=== PATIENT | female | born 1995 | race Caucasian/White ===

== ENCOUNTER → 2016-06-25 | Outpatient (CLI) | payer OTHER ==
[2015-11-14 15:10] VITALS: BP 106/68
[~2016-06-25] MED LIST: FERR325T58 PO; PNV1TABL25 PO
--- NOTE | 2016-06-25 08:32 | RAD ---
Indication:Abdominal pain Grayscale images of the abdomen were obtained. Comparison none Liver:No focal mass is seen in the visualized liver Gallbladder:Normal. The common bile duct diameter of 4 to 5 mm is normal Spleen:Slightly enlarged but otherwise normal Pancreas:As visualized normal. Some of the tail was obscured. Kidneys:Normal Abdominal aorta and IVC:Normal Ancillary findings:None Impression:No acute or significant finding. Spleen slightly enlarged
== END | disposition home or self-care (01) ==
LOC: US 07:35
PROVIDERS: ATTEND Family Medicine
DX: R10.84 Generalized abdominal pain (principal)
CPT/HCPCS: 76700

== ENCOUNTER 2016-07-31 22:58 | Emergency (ER) | payer OTHER ==
[~2016-07-31] VITALS: Ht 160 cm; Wt 86.2 kg
[2016-07-31 23:20] VITALS: BP 117/59
[2016-07-31 23:31] LABS: BILIRUBIN,URINE NEGATIVE (NEG); GLUCOSE,URINE NEGATIVE (NEG); NITRITE,URINE NEGATIVE (NEG); PROTEIN,URINE NEGATIVE (NEG-TRACE); UROBILINOGEN,URINE 0.2 mg/dL (0.2 mg/dL)
--- NOTE | 2016-07-31 23:37 | PHYS DOC ---
Past Medical History Past Medical History: Bipolar, Depression Past Surgical History: No Surgical History Alcohol Use: None Drug Use: None Adult General Chief Complaint Chief Complaint: RIB PAIN HPI HPI Patient is a 21 year old female with history of bipolar and depression who presents today with 7 out of 10 left upper quadrant/ left anterior rib pain that began 2 days ago. Patient denies any trauma. She states the pain is worse when she takes a deep breath. Patient denies any urgency frequency dysuria. Denies any hematuria. Denies any chance she is . She states she is on control and takes it daily. Denies any history of alcohol abuse. Review of Systems Review of Systems Constitutional: Denies fever or chills [] Eyes: Denies change in visual acuity, redness, or eye pain [] HENT: Denies nasal congestion or sore throat [] Respiratory: Left lateral anterior lower rib pain Cardiovascular: No additional information not addressed in HPI [] GI: Left upper quadrant pain : Denies dysuria or hematuria [] Musculoskeletal: Denies back pain or joint pain [] Integument: Denies rash or skin lesions [] Neurologic: Denies headache, focal weakness or sensory changes [] Endocrine: Denies polyuria or polydipsia [] Allergies Allergies Allergies Coded Allergies Type Severity Reaction Last Updated Verified No Known Drug Allergies 11/10/15 No Physical Exam Physical Exam Constitutional: Well developed, well nourished, no acute distress, non-toxic appearance. [] HENT: Normocephalic, atraumatic, bilateral external ears normal, oropharynx moist, no oral exudates, nose normal. [] Eyes: PERRLA, EOMI, conjunctiva normal, no discharge. [] Neck: Normal range of motion, no tenderness, supple, no stridor. [] Cardiovascular:Heart rate regular rhythm, no murmur [] Lungs & Thorax: Bilateral breath sounds clear to auscultation, reproducible tenderness on palpation of the left lower ribs approx. ribs 7-9 mid clavicular line. Abdomen: Bowel sounds normal, soft, no tenderness, no masses, no pulsatile masses. [] Skin: Warm, dry, no erythema, no rash. [] Back: No tenderness, no CVA tenderness. [] Extremities: No tenderness, no cyanosis, no clubbing, ROM intact, no edema. [] Neurologic: Alert and oriented X 3, normal motor function, normal sensory function, no focal deficits noted. [] Psychologic: Affect normal, judgement normal, mood normal. [] Current Patient Data Vital Signs Vital Signs Date Time Temp Pulse Resp B/P (MAP) Pulse Ox O2 Delivery O2 Flow Rate FiO2 07/31/16 23:20 98.9 92 18 99 Room Air 98.9 Lab Values Laboratory Tests Test 07/31/16 22:36 07/31/16 23:26 POC Urine HCG, Qualitative Hcg negative (Negative) Urine Collection Type Unknown Urine Color Yellow Urine Clarity Cloudy Urine pH 7.0 Urine Specific [place] 1.010 Urine Protein Negative mg/dL (NEG-TRACE) Urine Glucose (UA) Negative mg/dL (NEG) Urine Ketones (Stick) Negative mg/dL (NEG) Urine Blood Negative (NEG) Urine Nitrite Negative (NEG) Urine Bilirubin Negative (NEG) Urine Urobilinogen Dipstick 0.2 mg/dL (0.2 mg/dL) Urine Leukocyte Esterase Trace (NEG) Urine RBC 0 /HPF (0-2) Urine WBC 1-4 /HPF (0-4) Urine Squamous Epithelial Cells Many /LPF Urine Bacteria Few /HPF (0-FEW) EKG EKG [] Radiology/Procedures Radiology/Procedures [] Course & Med Decision Making Course & Med Decision Making Pertinent Labs and Imaging studies reviewed. (See chart for details) This is a 21 year old female who presents with left upper quadrant/ left anterior rib pain that began 2 days ago. Patient's pain is musculoskeletal. Chest x-ray interpreted by Dr. Villalobos is negative for any acute findings. Urine analysis is negative for infection and blood. patient be discharged with naproxen and Flexeril. Recommended ice or heat to the affected area. Follow-up with her own PCP in 1-2 weeks. Dragon Disclaimer Dragon Disclaimer This electronic medical record was generated, in whole or in part, using a voice recognition dictation system. Departure Departure Impression: Primary Impression: Rib pain on left side Disposition: 01 HOME, SELF-CARE Condition: STABLE Referrals: VITALY SANDHU MD (PCP) Follow-up with your own doctor in 1-2 weeks Patient Instructions: Musculoskeletal Pain Additional Instructions: You were seen for left rib pain. The pain appears to be musculoskeletal. Take the prescribed medicines as needed. You can apply heat or ice to the area. Follow-up with your own doctor in 1-2 weeks. Continue taking deep breaths despite the pain to prevent pneumonia. Scripts Naproxen (NAPROXEN) 500 Mg Tablet. 1 TAB PO BID, #60 TAB 1 Refill Prov: MARÍA SWANSON APRN 07/31/16 Cyclobenzaprine Hcl (CYCLOBENZAPRINE HCL) 10 Mg Tablet 1 TAB PO TID, #30 TAB Prov: MARÍA SWANSON APRN 07/31/16 MARÍA SWANSON APRN Jul 31, 2016 23:37
[2016-07-31 23:45] LABS: BACTERIA,URINE FEW /HPF (0-FEW); RBC,URINE 0 /HPF (0-2); SQUAMOUS EPITHELIAL CELL,UR MANY /LPF
[2016-07-31] MEDS ORDERED: NAPR500T8 PO (23:56)
[2016-07-31] MEDS ORDERED: CYCL10TA2 PO (23:56)
--- NOTE | 2016-08-01 07:45 | RAD ---
Indication right-sided chest pain. PA and lateral views of the chest were obtained. No prior imaging of the chest is available. The heart and pulmonary vessels appear normal. The lungs are clear. There is no pleural fluid or pneumothorax. Bony structures appear grossly intact. IMPRESSION: Normal study
== END 2016-08-01 00:01 | disposition home or self-care (01) ==
LOC: ER 22:58
DX: R07.81 Pleurodynia (principal); F31.9 Bipolar disorder, unspecified
CPT/HCPCS: 71020; 81001; 81025; 99285-25

== ENCOUNTER 2017-02-22 17:42 | Emergency (ER) | payer OTHER ==
[2017-02-22] MEDS: TETRACAINE 0.5% OPHTH SOLUTION 4ML BOTTLE. OU (18:48)
[2017-02-22] MEDS: FLUORESCEIN OPHTH TEST STRIP. OU (18:48)
== END 2017-02-22 19:22 | disposition home or self-care (01) ==
LOC: ER 17:42
DX: H10.89 Other conjunctivitis (principal); B96.89 Other specified bacterial agents as the cause of diseases classified elsewhere; F31.9 Bipolar disorder, unspecified
CPT/HCPCS: 99283

== ENCOUNTER 2017-02-25 21:58 | Emergency (ER) | payer OTHER ==
[2017-02-26 08:35] LABS: NEGATIVE OBC STREP NEG
[2017-02-26 08:36] LABS: POSITIVE OBC STREP POS
== END 2017-02-25 23:06 | disposition home or self-care (01) ==
LOC: ER 21:58
DX: J02.0 Streptococcal pharyngitis (principal); F31.9 Bipolar disorder, unspecified
CPT/HCPCS: 87880; 99283

== ENCOUNTER 2017-06-01 21:49 | Emergency (ER) | payer OTHER ==
[2017-06-01 22:10] LABS: URINE HCG POC HCG POSITIVE (Negative)
[2017-06-01 22:18] LABS: BILIRUBIN,URINE NEGATIVE (NEG); COLOR,URINE YELLOW; GLUCOSE,URINE NEGATIVE (NEG); NITRITE,URINE NEGATIVE (NEG); PH,URINE 6.5; PROTEIN,URINE NEGATIVE (NEG-TRACE)
[2017-06-01 22:32] LABS: CLARITY,URINE HAZY
[2017-06-01 22:37] LABS: BACTERIA,URINE MODERATE /HPF (0-FEW); RBC,URINE 0 /HPF (0-2); SQUAMOUS EPITHELIAL CELL,UR MANY /LPF
[2017-06-01 22:52] LABS: ADD MAN DIFF? NO
[2017-06-01 22:54] LABS: BASO # 0.1 x10^3/uL (0.0-0.2); BASO % 1 % (0-3); EOS # 0.1 x10^3/uL (0.0-0.7); EOS % 1 % (0-3); HEMATOCRIT 36.2 % (36.0-47.0); HEMOGLOBIN 12.2 g/dL (12.0-15.5); LYMPH # 2.7 x10^3/uL (1.0-4.8); LYMPH % 27 % (24-48); MEAN CORPUSCULAR HEMOGLOBIN 29 pg (25-35); MEAN CORPUSCULAR HGB CONC 34 g/dL (31-37); MEAN CORPUSCULAR VOLUME 85 fL (79-100); MONO # 0.5 x10^3/uL (0.0-1.1); MONO % 5 % (0-9); NEUT # 6.7 x10^3uL (1.8-7.7); NEUT % 67 % (31-73); PLATELET COUNT 254 x10^3/uL (140-400); RED BLOOD COUNT 4.27 x10^6/uL (3.50-5.40); RED CELL DISTRIBUTION WIDTH 13.7 % (11.5-14.5); WHITE BLOOD COUNT 10.1 x10^3/uL (4.0-11.0)
[2017-06-01 23:16] LABS: ANION GAP 11 (6-14); BLOOD UREA NITROGEN 13 mg/dL (7-20); CALCIUM 8.7 mg/dL (8.5-10.1); CARBON DIOXIDE 25 mmol/L (21-32); CHLORIDE 104 mmol/L (98-107); CREATININE 0.6 mg/dL (0.6-1.0); GFR 127.5; GLUCOSE 95 mg/dL (70-99); POTASSIUM 3.8 mmol/L (3.5-5.1); SODIUM 140 mmol/L (136-145)
[2017-06-01 23:21] LABS: ALBUMIN 3.6 g/dL (3.4-5.0); ALK PHOS 85 U/L (46-116); ALT (SGPT) 32 U/L (14-59); AST (SGOT) 22 U/L (15-37); DIRECT BILIRUBIN < 0.2 mg/dL (0.0-0.2); LIPASE 104 U/L (73-393); TOTAL BILIRUBIN 0.5 mg/dL (0.2-1.0); TOTAL PROTEIN 7.9 g/dL (6.4-8.2)
== END 2017-06-01 23:50 | disposition home or self-care (01) ==
LOC: ER 21:49
DX: O26.891 Other specified pregnancy related conditions, first trimester (principal); R10.2 Pelvic and perineal pain; R82.71 Bacteriuria; O20.9 Hemorrhage in early pregnancy, unspecified; O99.341 Other mental disorders complicating pregnancy, first trimester; F31.9 Bipolar disorder, unspecified; Z3A.01 Less than 8 weeks gestation of pregnancy
CPT/HCPCS: 36415; 76801; 80048; 80076; 81001; 81025; 83690; 84702; 85025; 87086; 99285-25

== ENCOUNTER → 2017-07-01 | Outpatient (CLI) | payer OTHER ==
[2017-07-01 15:34] LABS: ADD MAN DIFF? NO
[2017-07-01 15:47] LABS: BASO # 0.1 x10^3/uL (0.0-0.2); BASO % 1 % (0-3); EOS # 0.1 x10^3/uL (0.0-0.7); EOS % 1 % (0-3); HEMATOCRIT 34.6 % (36.0-47.0); LYMPH # 1.8 x10^3/uL (1.0-4.8); LYMPH % 22 % (24-48); MEAN CORPUSCULAR HEMOGLOBIN 30 pg (25-35); MEAN CORPUSCULAR HGB CONC 35 g/dL (31-37); MEAN CORPUSCULAR VOLUME 86 fL (79-100); MONO # 0.4 x10^3/uL (0.0-1.1); MONO % 5 % (0-9); NEUT # 5.7 x10^3uL (1.8-7.7); NEUT % 71 % (31-73); PLATELET COUNT 249 x10^3/uL (140-400); RED BLOOD COUNT 4.03 x10^6/uL (3.50-5.40); RED CELL DISTRIBUTION WIDTH 13.7 % (11.5-14.5)
[2017-07-01 16:52] LABS: BILIRUBIN,URINE NEGATIVE (NEG); CLARITY,URINE CLEAR; COLOR,URINE YELLOW; GLUCOSE,URINE NEGATIVE (NEG); NITRITE,URINE NEGATIVE (NEG); PROTEIN,URINE NEGATIVE (NEG-TRACE)
[2017-07-01 17:21] LABS: BACTERIA,URINE FEW /HPF (0-FEW); RBC,URINE 0 /HPF (0-2); SQUAMOUS EPITHELIAL CELL,UR MOD /LPF
[2017-07-02 06:16] LABS: RPR Non Reactive (Non Reactive)
[2017-07-02 07:36] LABS: HEP B SURFACE AG Negative (Negative); HIV ANTIBODY Non Reactive (Non Reactive)
[2017-07-03 19:18] LABS: RUBELLA IGG ANTIBODY <0.90 index (Immune >0.99)
== END | disposition home or self-care (01) ==
LOC: LAB 15:20
DX: Z34.91 Encounter for supervision of normal pregnancy, unspecified, first trimester (principal); Z3A.11 11 weeks gestation of pregnancy
CPT/HCPCS: 36415; 81001; 85025; 86593; 86703; 86762; 86850; 86900; 86901; 87086; 87340

== ENCOUNTER → 2017-07-08 | Outpatient (CLI) | payer OTHER | END | disposition home or self-care (01) | LOC: US 10:41 | DX: Z34.81 Encounter for supervision of other normal pregnancy, first trimester (principal); Z3A.12 12 weeks gestation of pregnancy | CPT/HCPCS: 76815 ==

== ENCOUNTER → 2017-10-07 | Outpatient (CLI) | payer OTHER ==
[2017-06-01 22:18] VITALS: BP 128/76
[~2017-10-07] MED LIST changes: +AMOX875T PO; +CEPH-263 PO; +CYCL10TA2 PO; +NAPR500T8 PO; +TOBR5DRO6 EACHEYE
--- NOTE | 2017-10-07 16:54 | RAD ---
Obstetrical ultrasound HISTORY: Large for dates. COMPARISON: July 08, 2017 FINDINGS: Cervical length measures 4.2 cm. movement is documented. Amniotic fluid volume is within normal limits. ALEXA measures 13.4 cm. heart tones are documented with a heart rate of 143 bpm. Fetus is in a breech presentation. Placenta is posterior and fundal. Head circumference, biparietal diameter, femur length and abdominal circumference are measured. Estimated sonographic age is 26 weeks 1 day with an estimated due date of January 12, 2018. Estimated weight is 2 lbs. 0 oz. +/- 5 ounces. IMPRESSION: Single viable fetus identified in breech presentation. Estimated sonographic age is 26 weeks 1 day. Note that the estimated clinical age is 25 weeks 1 day. Electronically signed by: Héctor Hamilton MD (10/07/2017 4:50 PM) [id number]
== END | disposition home or self-care (01) ==
LOC: US 14:07
PROVIDERS: ATTEND Family Medicine
DX: O36.62X0 Maternal care for excessive fetal growth, second trimester, not applicable or unspecified (principal); Z3A.25 25 weeks gestation of pregnancy
CPT/HCPCS: 76805

== ENCOUNTER 2017-10-26 22:14 | Observation (INO) | payer OTHER ==
[2017-06-01 22:18] VITALS: BP 128/76
[2017-10-26] MEDS ORDERED: IV RINGERS,LACTATED 1000ML 1,000 ML IV PRN (22:30)
[2017-10-26 23:11] LABS: BILIRUBIN,URINE NEGATIVE (NEG); CLARITY,URINE CLEAR; COLOR,URINE YELLOW; NITRITE,URINE NEGATIVE (NEG); PROTEIN,URINE NEGATIVE (NEG-TRACE); UROBILINOGEN,URINE 0.2 mg/dL (0.2 mg/dL)
[2017-10-26 23:12] LABS: BACTERIA,URINE 0 /HPF (0-FEW); RBC,URINE 0 /HPF (0-2); SQUAMOUS EPITHELIAL CELL,UR FEW /LPF; WBC,URINE 0 /HPF (0-4)
[2017-10-26 23:14] LABS: BARBITURATES NEG (NEG); BENZODIAZEPINES NEG (NEG); CANNABINOIDS NEG (NEG); COCAINE NEG (NEG); METHADONE NEG (NEG); OPIATES NEG (NEG); PHENCYCLIDINE NEG (NEG)
[2017-10-26 23:15] LABS: AMPHETAMINE/METHAMPHETAMINE NEG (NEG)
== END 2017-10-27 00:05 | disposition home or self-care (01) ==
LOC: 3 SO LND 22:14
PROVIDERS: ADMIT Family Medicine; ATTEND Family Medicine
DX: O62.9 Abnormality of forces of labor, unspecified (principal); Z3A.27 27 weeks gestation of pregnancy
CPT/HCPCS: 80307; 81001; G0378; G0379; G0479

== ENCOUNTER → 2017-11-04 | Outpatient (CLI) | payer OTHER ==
[2017-06-01 22:18] VITALS: BP 128/76
[2017-11-04 12:29] LABS: HEMATOCRIT 29.1 % (36.0-47.0); HEMOGLOBIN 10.2 g/dL (12.0-15.5)
== END | disposition home or self-care (01) ==
LOC: LAB 11:02
PROVIDERS: ATTEND Family Medicine
DX: Z34.83 Encounter for supervision of other normal pregnancy, third trimester (principal); Z3A.28 28 weeks gestation of pregnancy
CPT/HCPCS: 36415; 82950; 85014; 85018

== ENCOUNTER 2018-01-05 19:38 | Observation (INO) | payer OTHER ==
[2017-06-01 22:18] VITALS: BP 128/76
[2018-01-05] MEDS ORDERED: ACETAMINOPHEN 325 MG TABLET. PO PRN (20:30)
[2018-01-05] MEDS ORDERED: hydrOXYzine PAMOATE 25 MG CAPSULE PO PRN (20:30)
[2018-01-05 20:45] LABS: BILIRUBIN,URINE NEGATIVE (NEG); CLARITY,URINE CLEAR; COLOR,URINE YELLOW; NITRITE,URINE NEGATIVE (NEG); PROTEIN,URINE NEGATIVE (NEG-TRACE)
[2018-01-05 20:54] LABS: BACTERIA,URINE FEW /HPF (0-FEW); RBC,URINE 0 /HPF (0-2); SQUAMOUS EPITHELIAL CELL,UR MOD /LPF; WBC,URINE OCC /HPF (0-4)
== END 2018-01-06 06:15 | disposition home or self-care (01) ==
LOC: 3 SO LND 19:38
PROVIDERS: ADMIT Family Medicine; ATTEND Family Medicine
DX: O99.89 Other specified diseases and conditions complicating pregnancy, childbirth and the puerperium (principal); O26.893 Other specified pregnancy related conditions, third trimester; M54.5 Low back pain; R10.2 Pelvic and perineal pain; Z3A.38 38 weeks gestation of pregnancy
CPT/HCPCS: 81001; G0378; G0379; Q0177

== ENCOUNTER 2018-03-03 17:51 | Emergency (ER) | payer OTHER ==
[~2018-03-03] VITALS: Ht 160 cm; Wt 68.0 kg
[~2018-03-03 17:51] MED LIST changes: +HYDR-3164 PO; +IBUP-1060 PO
[2018-03-03 18:08] LABS: BILIRUBIN,URINE NEGATIVE (NEG); CLARITY,URINE CLEAR; COLOR,URINE YELLOW; NITRITE,URINE NEGATIVE (NEG); PROTEIN,URINE NEGATIVE (NEG-TRACE)
[2018-03-03] MEDS ORDERED: ONDANSETRON PF 4 MG/2 ML VIAL. IV ONE (18:15)
[2018-03-03] MEDS ORDERED: IV NORMAL SALINE 1000ML BAG 1,000 ML IV ONE (18:15)
[2018-03-03 18:18] LABS: BACTERIA,URINE FEW /HPF (0-FEW); RBC,URINE 0 /HPF (0-2); SQUAMOUS EPITHELIAL CELL,UR MOD /LPF; WBC,URINE OCC /HPF (0-4)
--- NOTE | 2018-03-03 18:19 | PHYS DOC ---
Past Medical History Past Medical History: Bipolar, Depression Additional Past Medical Histor: STREP THROAT Past Surgical History: No Surgical History Alcohol Use: None Drug Use: None Adult General Chief Complaint Chief Complaint: PELVIC PAIN HPI HPI Patient is a 22 year old female who presents with nausea and pelvic cramps. The patient is status post delivery 2 months earlier. She has not resumed menstrual cycles yet. The patient does endorse unprotected sexual encounter day before yesterday. She decided yesterday to go to the pharmacy and buy the plan B which she took. Today, she developed some mild pelvic cramping which she states feels similar to menstrual cramps only of higher intensity. She also had some persistent nausea over the course of today. No fevers or chills. No vaginal bleeding or discharge. The patient endorses a long-term monogamous relationship but is not currently on control. Review of Systems Review of Systems Constitutional: Denies fever Eyes: Denies change in visual acuity HENT: Denies nasal congestion or sore throat Respiratory: Denies cough or shortness of breath Cardiovascular: No additional information not addressed in HPI GI: Denies abdominal pain : Denies dysuria or hematuria Musculoskeletal: Denies back pain or joint pain Integument: Denies rash or skin lesions Neurologic: Denies headache Endocrine: Denies polyuria All other systems were reviewed and found to be within normal limits, except as documented in this note. Current Medications Current Medications Current Medications Medications (Trade) Dose Ordered Sig/Pino Start Time Stop Time Status Last Admin Dose Admin Ketorolac Tromethamine (Toradol 30mg Vial) 30 mg 1X ONCE 03/03/18 19:30 03/03/18 19:31 DC 03/03/18 19:27 30 MG Ondansetron HCl (Zofran) 4 mg 1X ONCE 03/03/18 18:15 03/03/18 18:16 DC 03/03/18 18:44 4 MG Prochlorperazine Edisylate (Compazine) 5 mg 1X ONCE 03/03/18 19:45 03/03/18 19:46 DC 03/03/18 19:49 5 MG Sodium Chloride 1,000 ml @ 1,000 mls/hr 1X ONCE 03/03/18 18:15 03/03/18 19:14 DC 03/03/18 18:43 1,000 MLS/HR Allergies Allergies Allergies Coded Allergies Type Severity Reaction Last Updated Verified milk Allergy Severe enlarged liver and spleen dx by sono after milk 01/05/18 Yes mushroom Allergy Severe Anaphylaxis, edema 01/05/18 Yes Physical Exam Physical Exam Constitutional: Well developed, well nourished, no acute distress, non-toxic appearance HENT: Normocephalic, atraumatic, bilateral external ears normal, oropharynx moist Eyes: PERRLA, EOMI, conjunctiva normal, no discharge Neck: Normal range of motion, no tenderness Cardiovascular:Heart rate regular rhythm, no murmur Lungs & Thorax: Bilateral breath sounds clear to auscultation Abdomen: Bowel sounds normal, soft, no tenderness Skin: Warm, dry, no erythema, no rash Extremities: No tenderness, no cyanosis, no clubbing Neurologic: Alert and oriented X 3 Psychologic: Affect normal Current Patient Data Vital Signs Vital Signs Date Time Temp Pulse Resp B/P (MAP) Pulse Ox O2 Delivery O2 Flow Rate FiO2 03/03/18 19:50 66 20 95/55 (68) 99 Room Air 03/03/18 18:00 97.3 97.3 Lab Values Laboratory Tests Test 03/03/18 17:58 Urine Collection Type Unknown Urine Color Yellow Urine Clarity Clear Urine pH 6.0 Urine Specific [place] >=1.030 Urine Protein Negative mg/dL (NEG-TRACE) Urine Glucose (UA) Negative mg/dL (NEG) Urine Ketones (Stick) Trace mg/dL (NEG) Urine Blood Negative (NEG) Urine Nitrite Negative (NEG) Urine Bilirubin Negative (NEG) Urine Urobilinogen Dipstick 1.0 mg/dL (0.2 mg/dL) Urine Leukocyte Esterase Negative (NEG) Urine RBC 0 /HPF (0-2) Urine WBC Occ /HPF (0-4) Urine Squamous Epithelial Cells Mod /LPF Urine Bacteria Few /HPF (0-FEW) Urine Mucus Marked /LPF Urine Test Negative (NEG) EKG EKG [] Radiology/Procedures Radiology/Procedures [] Course & Med Decision Making Course & Med Decision Making Pertinent Labs and Imaging studies reviewed. (See chart for details) Patient is evaluated immediately on arrival to the emergency department. She is in no acute distress. I discussed treatment options with her including intramuscular medication as well as Zofran ODT for symptom relief. Patient opts for IV treatment as these will likely improve her symptoms and a more timely fashion. She is offered pelvic examination for complete evaluation of her pelvic crampy like symptoms but she does decline. The patient denies any concern for exposure to sexually transmitted disease. Will check urine and urine test and treat the patient symptomatically with IV fluids, Toradol, and Zofran. 19:40: Patient is reevaluated. Her cramping is just starting to improve although she did just receive the Toradol. Her urine is not infected. She does continue to complain of mild nausea symptoms. A small dose of Compazine is ordered and additional IV fluids. 20:15: Patient is currently feeling much improved. The Toradol and Compazine improved her symptoms. Plan is for discharge home. Patient is agreeable. She is provided prescription for oral Compazine and naproxen to use as needed. She is advised to take these medications only if her symptoms continue. All of her questions are answered prior to discharge. She has a normal steady gait to exit. Dragon Disclaimer Dragon Disclaimer This electronic medical record was generated, in whole or in part, using a voice recognition dictation system. Departure Departure Disposition: 01 HOME, SELF-CARE Condition: GOOD Referrals: VITALY SANDHU MD (PCP) Scripts Prochlorperazine Maleate (Compazine) 10 Mg Tablet 10 MG PO Q6H PRN for NAUSEA, #10 TAB Prov: JIGNA GARRIDO DO 03/03/18 Naproxen (NAPROXEN) 500 Mg Tablet. 1 TAB PO BID, #30 TAB 0 Refills Prov: JIGNA GARRIDO DO 03/03/18 JIGNA GARRIDO DO Mar 03, 2018 18:19
[2018-03-03 19:14] LABS: U PREG PATIENT NEGATIVE (NEG)
[2018-03-03] MEDS ORDERED: KETOROLAC 30 MG/ML VIAL. IV ONE (19:30)
[2018-03-03] MEDS ORDERED: PROCHLORPERAZINE 10 MG/2 ML VIAL. IV ONE (19:45)
[2018-03-03 19:50] VITALS: BP 95/55
[2018-03-03] MEDS ORDERED: NAPR500T8 PO (20:02)
[2018-03-03] MEDS ORDERED: PROC10TA57 PO (20:02)
== END 2018-03-03 20:10 | disposition home or self-care (01) ==
LOC: ER 17:51
DX: R10.2 Pelvic and perineal pain (principal); R11.0 Nausea; F31.9 Bipolar disorder, unspecified; F32.9 Major depressive disorder, single episode, unspecified; Z91.011 Allergy to milk products; Z91.013 Allergy to seafood
CPT/HCPCS: 81001; 81025; 96374; 96375; 99283; J0780; J1885; J2405; J7030

== ENCOUNTER 2018-08-12 09:49 | Emergency (ER) | payer OTHER ==
[~2018-08-12] VITALS: Ht 160 cm; Wt 79.4 kg
[~2018-08-12 09:49] MED LIST changes: +PROC10TA57 PO
[2018-08-12 11:54] VITALS: BP 116/74
--- NOTE | 2018-08-12 12:35 | PHYS DOC ---
Past Medical History Past Medical History: Bipolar, Depression Additional Past Medical Histor: STREP THROAT Past Surgical History: No Surgical History Alcohol Use: None Drug Use: None Adult General Chief Complaint Chief Complaint: ABDOMINAL PAIN HPI HPI Patient is a 23 year old female who presents with complaining of abdominal pain. Patient states she usually gets abdominal pain with her menstruation but after she started her menstruation last night she has had more pain than her usual is in lower and upper abdominal cramping pain and rated her pain 10 over 1 0. Patient states she took at this morning without change of her pain. Patient states she has her usual bleeding as a heavy bleeding without dizziness, fever and chills, urinary symptom, fever and chills. Review of Systems Review of Systems Constitutional: Denies fever or chills [] Eyes: Denies change in visual acuity, redness, or eye pain [] HENT: Denies nasal congestion or sore throat [] Respiratory: Denies cough or shortness of breath [] Cardiovascular: No additional information not addressed in HPI [] GI: Reports abdominal pain, denies nausea, vomiting, bloody stools or diarrhea [] : Denies dysuria or hematuria [] Musculoskeletal: Denies back pain or joint pain [] Integument: Denies rash or skin lesions [] Neurologic: Denies headache, focal weakness or sensory changes [] Endocrine: Denies polyuria or polydipsia [] All other systems were reviewed and found to be within normal limits, except as documented in this note. Current Medications Current Medications Current Medications Medications (Trade) Dose Ordered Sig/Pino Start Time Stop Time Status Last Admin Dose Admin Ketorolac Tromethamine (Toradol Im) 60 mg 1X ONCE 08/12/18 13:30 08/12/18 13:39 DC 08/12/18 13:58 60 MG Allergies Allergies Allergies Coded Allergies Type Severity Reaction Last Updated Verified milk Allergy Severe enlarged liver and spleen dx by sono after milk 01/05/18 Yes mushroom Allergy Severe Anaphylaxis, edema 01/05/18 Yes Physical Exam Physical Exam Constitutional: Well developed, well nourished, mild distress, non-toxic appearance. [] HENT: Normocephalic, atraumatic, oropharynx moist. Eyes: PERRLA, EOMI, conjunctiva normal, no discharge. [] Neck: Normal range of motion, no tenderness, supple, no stridor. [] Cardiovascular:Heart rate regular rhythm, no murmur [] Lungs & Thorax: Bilateral breath sounds clear to auscultation [] Abdomen: Bowel sounds normal, soft, no tenderness, no masses, no pulsatile masses. [] Skin: Warm, dry, no erythema, no rash. [] Back: No tenderness, no CVA tenderness. [] Extremities: No tenderness, no cyanosis, no clubbing, ROM intact, no edema. [] Neurologic: Alert and oriented X 3, normal motor function, normal sensory function, no focal deficits noted. [] Psychologic: Affect normal, judgement normal, mood normal. [] Current Patient Data Vital Signs Vital Signs Date Time Temp Pulse Resp B/P (MAP) Pulse Ox O2 Delivery O2 Flow Rate FiO2 08/12/18 11:54 97.8 89 16 116/74 (88) 100 Room Air 97.8 Lab Values Laboratory Tests Test 08/12/18 12:45 08/12/18 13:13 Urine Collection Type Unknown Urine Color Yellow Urine Clarity Cloudy Urine pH 6.0 Urine Specific [place] >=1.030 Urine Protein Negative mg/dL (NEG-TRACE) Urine Glucose (UA) Negative mg/dL (NEG) Urine Ketones (Stick) Negative mg/dL (NEG) Urine Blood Moderate (NEG) Urine Nitrite Negative (NEG) Urine Bilirubin Small (NEG) Urine Urobilinogen Dipstick 1.0 mg/dL (0.2 mg/dL) Urine Leukocyte Esterase Negative (NEG) Urine RBC 6-10 /HPF (0-2) Urine WBC 1-4 /HPF (0-4) Urine Squamous Epithelial Cells Mod /LPF Urine Bacteria Few /HPF (0-FEW) Urine Mucus Marked /LPF POC Urine HCG, Qualitative Hcg negative (Negative) EKG EKG [] Radiology/Procedures Radiology/Procedures [] Course & Med Decision Making Course & Med Decision Making discharge: I've spoken with the patient and/or caregivers. I've explained the patient's condition, diagnosis and treatment plan based on information available to me at this time. I've answered the patient's and/or caregivers questions and addressed any concerns. The patient and/or caregivers have a good understanding the patient's diagnosis, condition and treatment plan as can be expected at this point. Vital signs have been stabilized. The patient's condition is stable for discharge from the emergency department. The patient will pursue further outpatient evaluation with her primary care provider or other designated consulting physician as outlined in the discharge instructions. Patient and/or caregivers are agreeable to this plan of care and follow-up instructions have been explained in detail. The patient and/or caregivers have received these instructions in written format and expressed understanding of these discharge instructions. The patient and her caregivers are aware that if any significant change in condition or worsening of symptoms should prompt him to immediately return to this of the closest emergency department. If an emergent department is not readily available I would encourage him to call 911. Dragon Disclaimer Dragon Disclaimer This electronic medical record was generated, in whole or in part, using a voice recognition dictation system. Departure Departure Impression: Primary Impression: Dysmenorrhea Disposition: HOME, SELF-CARE Condition: STABLE (at 1336) Referrals: VITALY SANDHU MD (PCP) Patient Instructions: Dysmenorrhea Additional Instructions: Drink plenty of liquids Follow-up with your primary care physician in 3-5 days Return to ER if not getting better Scripts Acetaminophen With Codeine (TYLENOL WITH CODEINE #3 TABLET) 1 Each Tablet 1 TAB PO PRN Q6HRS PRN for PAIN, #10 TAB Prov: MELLO HOBSON MD 08/12/18 Naproxen (NAPROSYN) 500 Mg Tablet 1 TAB PO BID for pain, #20 TAB Prov: MELLO HOBSON MD 08/12/18 MELLO HOBSON MD Aug 12, 2018 12:35
[2018-08-12 13:17] LABS: BILIRUBIN,URINE SMALL (NEG); CLARITY,URINE CLOUDY; COLOR,URINE YELLOW; NITRITE,URINE NEGATIVE (NEG); PROTEIN,URINE NEGATIVE (NEG-TRACE)
[2018-08-12] MEDS ORDERED: KETOROLAC 60 MG/2 ML VIAL. IM ONE (13:30)
[2018-08-12] MEDS ORDERED: NAPR-683 PO (13:39)
[2018-08-12] MEDS ORDERED: ACET-704 PO (13:39)
[2018-08-12 13:54] LABS: SQUAMOUS EPITHELIAL CELL,UR MOD /LPF
[2018-08-12 13:55] LABS: BACTERIA,URINE FEW /HPF (0-FEW)
== END 2018-08-12 14:15 | disposition home or self-care (01) ==
LOC: ER 09:49
DX: N94.6 Dysmenorrhea, unspecified (principal); F31.9 Bipolar disorder, unspecified; Z91.011 Allergy to milk products; Z91.013 Allergy to seafood
CPT/HCPCS: 81001; 81025; 96372; 99283; J1885

== ENCOUNTER → 2018-11-17 | Outpatient (CLI) | payer OTHER ==
[~2018-11-17] MED LIST changes: +ACET-704 PO; +NAPR-683 PO
[2018-11-17 15:32] LABS: BASO % 1 % (0-3); EOS # 0.1 x10^3/uL (0.0-0.7); EOS % 2 % (0-3); HEMOGLOBIN 11.9 g/dL (12.0-15.5); LYMPH # 1.8 x10^3/uL (1.0-4.8); LYMPH % 21 % (24-48); MEAN CORPUSCULAR HEMOGLOBIN 29 pg (25-35); MEAN CORPUSCULAR HGB CONC 34 g/dL (31-37); MEAN CORPUSCULAR VOLUME 84 fL (79-100); MONO # 0.5 x10^3/uL (0.0-1.1); MONO % 6 % (0-9); NEUT % 71 % (31-73); PLATELET COUNT 232 x10^3/uL (140-400); RED BLOOD COUNT 4.16 x10^6/uL (3.50-5.40); RED CELL DISTRIBUTION WIDTH 13.8 % (11.5-14.5); WHITE BLOOD COUNT 8.4 x10^3/uL (4.0-11.0)
[2018-11-17 15:57] LABS: ALBUMIN 4.2 g/dL (3.4-5.0); ALBUMIN/GLOBULIN RATIO 1.1 (1.0-1.7); CALCIUM 8.7 mg/dL (8.5-10.1); CREATININE 0.7 mg/dL (0.6-1.0); GFR 104.6; POTASSIUM 4.1 mmol/L (3.5-5.1); TOTAL BILIRUBIN 0.2 mg/dL (0.2-1.0)
[2018-11-17 16:06] LABS: FREE T4 0.79 ng/dL (0.76-1.46); THYROID STIM HORMONE (TSH) 1.29 uIU/mL (0.358-3.74)
== END | disposition home or self-care (01) ==
LOC: LAB 15:11
PROVIDERS: ATTEND Nurse Practitioner Gerontology
DX: R42 Dizziness and giddiness (principal); R53.83 Other fatigue
CPT/HCPCS: 36415; 80053; 82306; 84439; 84443; 85025

== ENCOUNTER → 2019-08-03 | Outpatient (CLI) | payer OTHER ==
--- NOTE | 2019-08-03 08:41 | RAD ---
EXAM: Left axillary sonogram. HISTORY: Left axillary mass. TECHNIQUE: Sonographic imaging of the left axilla at the site of concern was performed. COMPARISON: None. FINDINGS: There is a small lymph node with fatty hilum and normal cortical thickness within the left axilla at the site of palpable concern, measuring 6 mm in long axis. No suspicious lesion is seen. IMPRESSION: 6 mm lymph node with benign morphology within the left axilla at the site of palpable concern. Continued clinical follow-up of palpable abnormalities is recommended. Additional imaging can be performed if there is a change in physical exam findings or concern for a sonographically occult lesion. Electronically signed by: Kelly Valentin MD (08/03/2019 8:38 AM) [id number]
== END | disposition home or self-care (01) ==
LOC: US 07:33
PROVIDERS: ATTEND Family Medicine
DX: R22.32 Localized swelling, mass and lump, left upper limb (principal)
CPT/HCPCS: 76881

== ENCOUNTER 2019-12-24 17:11 | Emergency (ER) | payer OTHER ==
[~2019-12-24] VITALS: Ht 162.6 cm; Wt 81.8 kg
[2019-12-24 17:20] VITALS: BP 112/67
[2019-12-24] MEDS ORDERED: HYDROcodone/APAP 5/325MG 1 TAB TABLET PO ONE (17:30)
--- NOTE | 2019-12-24 18:10 | RAD ---
Exam: Right ankle 3 views. Right foot 3 views INDICATION: Proximal foot pain after twisting injury TECHNIQUE: Frontal, lateral and oblique views of the right ankle and right foot Comparisons: None FINDINGS: Foot: Nondisplaced fracture involving the base of the fifth metatarsal. Mild overlying soft tissue swelling. Joint spaces are well-maintained. Bone mineralization is normal. Ankle: Redemonstration of fracture at the base of the fifth metatarsal. Bone mineralization is normal. No acute or healed fractures. Joint spaces are well-maintained. IMPRESSION: 1. Nondisplaced transverse fracture involving the base of the fifth metatarsal. 2. No other fracture identified at the ankle. Electronically signed by: Freya Pace MD (12/24/2019 6:07 PM) [id number]
--- NOTE | 2019-12-24 18:19 | ED.ADGEN ---
Past Medical History Past Medical History: Bipolar, Depression Additional Past Medical Histor: STREP THROAT Past Surgical History: No Surgical History Smoking Status: Never Smoker Alcohol Use: None Drug Use: None General Adult EDM: Chief Complaint: FOOT INJURY PAIN HPI: HPI: Patient is a 24 year old female who presents to the emergency department with complaints of proximal right lateral foot pain after twisting injury that happened just prior to arrival. Patient states she twisted her foot while walking on uneven surface. She denies any ankle pain, decreased sensation, numbness, or tingling. She currently rates pain a 10 out of 10 on the pain scale, she denies any alleviating factors. Review of Systems: Review of Systems: Complete ROS is negative unless otherwise stated in the HPI. Current Medications: Current Medications Medications (Trade) Dose Ordered Sig/Pino Start Time Stop Time Status Last Admin Dose Admin Acetaminophen/ Hydrocodone Bitart (Lortab 5/325) 1 tab 1X ONCE 12/24/19 17:30 12/24/19 17:33 DC 12/24/19 17:42 1 TAB Allergies: Allergies: Allergies Coded Allergies Type Severity Reaction Last Updated Verified milk Allergy Severe enlarged liver and spleen dx by sono after milk 01/05/18 Yes mushroom Allergy Severe Anaphylaxis, edema 01/05/18 Yes Physical Exam: PE: Constitutional: Well developed, well nourished, no acute distress, non-toxic appearance. [] HENT: Normocephalic, atraumatic, bilateral external ears normal, nose normal. [] Eyes: PERRLA, EOMI, conjunctiva normal, no discharge. [] Neck: Normal range of motion, no stridor. [] Cardiovascular:Heart rate regular rhythm Lungs & Thorax: Respirations even and unlabored, no retractions, no respiratory distress Skin: Warm, dry, no erythema, no rash. [] Extremities: Right foot: Proximal fifth metatarsal tenderness to palpation, with no crepitus, no obvious deformity, no bruising, 1+ edema, PMS intact, no cyanosis Neurologic: Alert and oriented X 3, no focal deficits noted. [] Psychologic: Affect normal, judgement normal, mood normal. [] Current Patient Data: Vital Signs: Vital Signs Date Time Temp Pulse Resp B/P (MAP) Pulse Ox O2 Delivery O2 Flow Rate FiO2 12/24/19 17:42 16 99 Room Air 12/24/19 17:20 98.4 95 112/67 82) 98.4 EKG: EKG: [] Heart Score: Risk Factors: Risk Factors: DM, Current or recent (<one month) smoker, HTN, HLP, family history of CAD, obesity. Risk Scores: Score 0 - 3: 2.5% MACE over next 6 weeks - Discharge Home Score 4 - 6: 20.3% MACE over next 6 weeks - Admit for Clinical Observation Score 7 - 10: 72.7% MACE over next 6 weeks - Early Invasive Strategies Radiology/Procedures: Radiology/Procedures: PROCEDURE: ANKLE RIGHT 3V Exam: Right ankle 3 views. Right foot 3 views INDICATION: Proximal foot pain after twisting injury TECHNIQUE: Frontal, lateral and oblique views of the right ankle and right foot Comparisons: None FINDINGS: Foot: Nondisplaced fracture involving the base of the fifth metatarsal. Mild overlying soft tissue swelling. Joint spaces are well-maintained. Bone mineralization is normal. Ankle: Redemonstration of fracture at the base of the fifth metatarsal. Bone mineralization is normal. No acute or healed fractures. Joint spaces are well-maintained. IMPRESSION: 1. Nondisplaced transverse fracture involving the base of the fifth metatarsal. 2. No other fracture identified at the ankle.[] Course & Med Decision Making: Course & Med Decision Making Pertinent Labs and Imaging studies reviewed. (See chart for details) [id number]-spoke with Dr. Farooq about this fracture will place the patient in a U- splint and give patient crutches. I will instruct patient to be strictly nonweightbearing and to call his office to schedule follow-up appointment. Will prescribe hydrocodone for pain. [] Trish Disclaimer: Trish Disclaimer: This electronic medical record was generated, in whole or in part, using a voice recognition dictation system. Departure Departure Impression: Primary Impression: Nondisplaced fracture of fifth metatarsal bone, right foot, initial encounter for closed fracture Disposition: 01 DC HOME SELF CARE/HOMELESS Condition: STABLE Referrals: PAUL FAROOQ II, MD Patient Instructions: Metatarsal Fracture, Undisplaced Additional Instructions: Fill prescription(s) and use as directed. Recommend application of ice, elevation, and rest of affected extremity. Wear the splint that was placed and use the crutches provided to remain completely non-weight bearing until follow up appointment, call tomorrow to schedule appointment. Return to the ER if your symptoms worsen. Scripts Hydrocodone Bit/Acetaminophen (HYDROCODONE-APAP 5-325 ) 1 Tab Tablet 0.5-1 TAB PO PRN Q6HRS PRN for PAIN for 5 Days, #20 TAB 0 Refills Prov: NELSON SANTOS ENCEPHALOGRAPHER 12/24/19 Splinting Splinting : Location: [facility] Hand-Made Type: orthoglass Splint: sugar-tong (U-splint) Pre-Proc Neuro Vasc Exam: normal Post-Proc Neuro Vasc Exam: normal, unchanged from pre-exam NELSON SANTOS ENCEPHALOGRAPHER Dec 24, 2019 18:19
[2019-12-24] MEDS ORDERED: HYDR-2761 PO (18:53)
== END 2019-12-24 18:59 | disposition home or self-care (01) ==
LOC: ER 17:11
DX: S92.354A Nondisplaced fracture of fifth metatarsal bone, right foot, initial encounter for closed fracture (principal); M25.571 Pain in right ankle and joints of right foot; R60.0 Localized edema; F32.9 Major depressive disorder, single episode, unspecified; Z91.011 Allergy to milk products; Z91.018 Allergy to other foods; X50.1XXA Overexertion from prolonged static or awkward postures, initial encounter; Y93.89 Activity, other specified; Y92.89 Other specified places as the place of occurrence of the external cause; Y99.8 Other external cause status
CPT/HCPCS: 29515; 73610; 73630; 99284

== ENCOUNTER 2020-03-23 21:08 | Emergency (ER) | payer OTHER ==
[~2020-03-23] VITALS: Ht 160 cm; Wt 80.4 kg
[~2020-03-23 21:08] MED LIST changes: +HYDR-2761 PO
[2020-03-23 21:28] LABS: BILIRUBIN,URINE SMALL (NEG); CLARITY,URINE CLEAR; COLOR,URINE YELLOW; NITRITE,URINE NEGATIVE (NEG); PROTEIN,URINE NEGATIVE (NEG-TRACE)
--- NOTE | 2020-03-23 21:29 | PHYS DOC ---
Past Medical History Past Medical History: Bipolar, Depression Additional Past Medical Histor: STREP THROAT Past Surgical History: No Surgical History Smoking Status: Never Smoker Alcohol Use: None Drug Use: None General Adult EDM: Chief Complaint: ABDOMINAL PAIN HPI: HPI: Patient is a 24 year old female who presents with 1 day of sharp shooting right flank pain that radiates to the right mid to lower abdomen. States she is also vomiting. Denies fever, chest pain, soa, vaginal discharge, numbness or tingling, headache, dizziness. Rates her pain a 8/10 and states took no medications prior to arrival. Medical hx Bipolar, depression, strep throat. Post covid19 x 2 weeks. Review of Systems: Review of Systems: Constitutional: Denies fever or chills. [] Eyes: Denies change in visual acuity. [] HENT: Denies nasal congestion or sore throat. [] Respiratory: Denies cough or shortness of breath. [] Cardiovascular: Denies chest pain or edema. [] GI: +Right sided abdominal pain, +nausea, +vomiting, denies bloody stools or diarrhea. [] : Denies dysuria. [] Musculoskeletal: Right flank back pain or denies joint pain. [] Integument: Denies rash. [] Neurologic: Denies headache, focal weakness or sensory changes. [] Endocrine: Denies polyuria or polydipsia. [] Lymphatic: Denies swollen glands. [] Psychiatric: Denies depression or anxiety. [] Heart Score: Risk Factors: Risk Factors: DM, Current or recent (<one month) smoker, HTN, HLP, family history of CAD, obesity. Risk Scores: Score 0 - 3: 2.5% MACE over next 6 weeks - Discharge Home Score 4 - 6: 20.3% MACE over next 6 weeks - Admit for Clinical Observation Score 7 - 10: 72.7% MACE over next 6 weeks - Early Invasive Strategies Current Medications: Current Medications Medications (Trade) Dose Ordered Sig/Pino Start Time Stop Time Status Last Admin Dose Admin Sodium Chloride 1,000 ml @ 1,000 mls/hr Q1H 03/23/20 21:30 03/23/20 22:29 Allergies: Allergies: Allergies Coded Allergies Type Severity Reaction Last Updated Verified milk Allergy Severe enlarged liver and spleen dx by sono after milk 01/05/18 Yes mushroom Allergy Severe Anaphylaxis, edema 01/05/18 Yes Physical Exam: PE: Constitutional: Well developed, well nourished, no acute distress, non-toxic appearance. [] HENT: Normocephalic, atraumatic, bilateral external ears normal, oropharynx moist, no oral exudates, nose normal. [] Eyes: PERRLA, EOMI, conjunctiva normal, no discharge. [] Neck: Normal range of motion, no tenderness, supple, no stridor. [] Cardiovascular:Heart rate regular rhythm, no murmur [] Lungs & Thorax: Bilateral breath sounds clear to auscultation [] Abdomen: Bowel sounds normal, soft, no tenderness, no masses, no pulsatile masses. [] Skin: Warm, dry, no erythema, no rash. [] Back: No tenderness, Right CVA tenderness. [] Extremities: No tenderness, no cyanosis, no clubbing, ROM intact, no edema. [] Neurologic: Alert and oriented X 3, normal motor function, normal sensory function, no focal deficits noted. [] Psychologic: Affect normal, judgement normal, mood normal. [] EKG: EKG: [] Radiology/Procedures: Radiology/Procedures: [] Impression: [facility] [address] [place], [place] [id number] IMAGING REPORT Signed PATIENT: AMA NINA ACCOUNT: [id number] : 1995 LOCATION: ER AGE: 24 SEX: F EXAM STATUS: REG ER ORD. PHYSICIAN: NOELLE THACKER APRN REASON: right flank pain, vomiting PROCEDURE: CT ABDOMEN PELVIS WO CONTRAST Abdominal and Pelvis CT, Without Contrast: History: Reason: right flank pain, vomiting / Spl. Instructions: / History: Comparison: None. Procedure: Axial images are obtained of the abdomen and pelvis, without IV or oral contrast. Oral Contrast: No Findings: Evaluation of solid organs is limited without contrast. The appendix is normal. The gallbladder is normal. Liver: Normal. Spleen: Normal. Pancreas: Normal. Adrenal Glands: Normal. Kidneys: Normal. There is no free air or free fluid. There is no lymphadenopathy. The urinary bladder appears normal. There is no pericolonic inflammation identified. Impression: No acute findings. End impression PQRS Compliance Statement: One or more of the following individualized dose reduction techniques were utilized for this examination: 1. Automated exposure control 2. Adjustment of the mA and/or kV according to patient size 3. Use of iterative reconstruction technique Electronically signed by: James Jc III, MD (03/23/2020 10:19 PM) [facility] DICTATED and SIGNED BY: JAMES JC III, MD DATE: 03/23/20 [id number] 0 Course & Med Decision Making: Course & Med Decision Making Pertinent Labs and Imaging studies reviewed. (See chart for details) See HPI. Abdomen is soft and nontender. Right CVA tenderness. Skin pink warm and dry. Alert and oriented x4. Speaks in full clear sentences. Ambulatory and steady. Nothing makes this pain worse or better. Blood work unremarkable. Urinalysis is dirty but I will treat her for UTI due to her having urinary symptoms. CT abdomen pelvis shows no acute findings. Patient is p.o. challenge and she is kept down the fluid but states that she feels like it is going to come back up. I will give her Compazine before she leaves. Going to send her home with nausea medicine and Keflex. Patient told me that she forgot to let me know that Saturday when she was watching the juice came her and her family had a cheese constitution party and everyone became sick with either diarrhea, abdominal pain or some vomiting. She states that literally about 12 hours later after she ate she began vomiting. [] Trish Disclaimer: Trish Disclaimer: This electronic medical record was generated, in whole or in part, using a voice recognition dictation system. Departure Departure Impression: Primary Impression: Flank pain Additional Impression: Nausea & vomiting Qualified Codes: R11.2 - Nausea with vomiting, unspecified Disposition: 01 DC HOME SELF CARE/HOMELESS Condition: STABLE Referrals: VITALY SANDHU MD (PCP) Patient Instructions: Nausea and Vomiting Additional Instructions: Follow-up with primary care provider. Drink plenty of fluids. Slowly increase her diet. If you begin not being able to keep down any fluids at all return to the emergency room. Scripts Cephalexin (CEPHALEXIN) 500 Mg Capsule 1 CAP PO BID, #14 CAP Prov: NOELLE THACKER ATTENDANCE CLERK 03/23/20 Ondansetron (ONDANSETRON ODT) 4 Mg Tab.rapdis 1 TAB PO PRN Q6-8HRS, #20 TAB Prov: NOELLE THACKER ATTENDANCE CLERK 03/23/20 NOELLE THACKER APRN Mar 23, 2020 21:29
[2020-03-23] MEDS ORDERED: IV NORMAL SALINE 1000ML BAG 1,000 ML IV SCH (21:30)
[2020-03-23 21:32] LABS: BASO % 1 % (0-3); EOS # 0.1 x10^3/uL (0.0-0.7); EOS % 2 % (0-3); HEMATOCRIT 34.8 % (36.0-47.0); HEMOGLOBIN 11.5 g/dL (12.0-15.5); LYMPH # 2.8 x10^3/uL (1.0-4.8); LYMPH % 38 % (24-48); MEAN CORPUSCULAR HEMOGLOBIN 27 pg (25-35); MEAN CORPUSCULAR HGB CONC 33 g/dL (31-37); MEAN CORPUSCULAR VOLUME 81 fL (79-100); MONO # 0.5 x10^3/uL (0.0-1.1); MONO % 7 % (0-9); NEUT # 3.8 x10^3/uL (1.8-7.7); NEUT % 52 % (31-73); PLATELET COUNT 301 x10^3/uL (140-400); RED BLOOD COUNT 4.32 x10^6/uL (3.50-5.40); RED CELL DISTRIBUTION WIDTH 13.2 % (11.5-14.5); WHITE BLOOD COUNT 7.3 x10^3/uL (4.0-11.0)
[2020-03-23 21:36] LABS: BACTERIA,URINE MODERATE /HPF (0-FEW)
[2020-03-23 21:37] LABS: RBC,URINE 0 /HPF (0-2); WBC,URINE RARE /HPF (0-4)
[2020-03-23 21:59] LABS: CALCIUM 8.8 mg/dL (8.5-10.1); CREATININE 0.7 mg/dL (0.6-1.0); GFR 103.7; POTASSIUM 3.9 mmol/L (3.5-5.1)
[2020-03-23] MEDS ORDERED: ONDANSETRON PF 4 MG/2 ML VIAL. IVP ONE (22:00)
[2020-03-23] MEDS ORDERED: fentaNYL PF VIAL 100 MCG/2 ML VIAL IVP ONE (22:00)
[2020-03-23 22:05] LABS: TOTAL BILIRUBIN 0.4 mg/dL (0.2-1.0); TOTAL PROTEIN 8.1 g/dL (6.4-8.2)
--- NOTE | 2020-03-23 22:22 | RAD ---
Abdominal and Pelvis CT, Without Contrast: History: Reason: right flank pain, vomiting / Spl. Instructions: / History: Comparison: None. Procedure: Axial images are obtained of the abdomen and pelvis, without IV or oral contrast. Oral Contrast: No Findings: Evaluation of solid organs is limited without contrast. The appendix is normal. The gallbladder is normal. Liver: Normal. Spleen: Normal. Pancreas: Normal. Adrenal Glands: Normal. Kidneys: Normal. There is no free air or free fluid. There is no lymphadenopathy. The urinary bladder appears normal. There is no pericolonic inflammation identified. Impression: No acute findings. End impression PQRS Compliance Statement: One or more of the following individualized dose reduction techniques were utilized for this examinat ion: 1. Automated exposure control 2. Adjustment of the mA and/or kV according to patient size 3. Use of iterative reconstruction technique Electronically signed by: Mitchell Ching III, MD (03/23/2020 10:19 PM) [facility]
[2020-03-23] MEDS ORDERED: cefTRIAXone IV Push 1 GM VIAL. IVP ONE (23:00)
[2020-03-23] MEDS ORDERED: CEPH500C PO (23:37)
[2020-03-23] MEDS ORDERED: ONDA4TAB12 PO (23:37)
[2020-03-23] MEDS ORDERED: PROCHLORPERAZINE 10 MG/2 ML VIAL. IV ONE (23:45)
[2020-03-24] MEDS ORDERED: IV NORMAL SALINE 1000ML BAG 1,000 ML IV ONE
[2020-03-24 00:16] VITALS: BP 113/72
--- NOTE | 2020-03-25 08:58 | NUR ---
IP: Informed pt of positive COVID test, however since she is 2 weeks post original positive test there is no need for quarantine. Pt verbalized understanding.
== END 2020-03-24 00:42 | disposition home or self-care (01) ==
LOC: ER 21:08
DX: U07.1 COVID-19 (principal); R10.30 Lower abdominal pain, unspecified; R11.2 Nausea with vomiting, unspecified; F31.9 Bipolar disorder, unspecified; Z91.011 Allergy to milk products; Z91.018 Allergy to other foods
CPT/HCPCS: 36415; 74176; 80053; 81001; 81025; 83690; 85025; 87086; 96361; 96374; 96375; 99284; C9803; J0696; J0780; J2405; J3010; J7030; U0003

== ENCOUNTER 2020-07-12 20:58 | Emergency (ER) | payer OTHER ==
[~2020-07-12] VITALS: Ht 160 cm; Wt 77.3 kg
[~2020-07-12 20:58] MED LIST changes: +CEPH500C PO; +ONDA4TAB12 PO
[2020-07-12] MEDS ORDERED: IV NORMAL SALINE 1000ML BAG 1,000 ML IV SCH (21:30)
[2020-07-12 21:37] LABS: BILIRUBIN,URINE NEGATIVE (NEG); CLARITY,URINE CLEAR; COLOR,URINE YELLOW; NITRITE,URINE NEGATIVE (NEG); PROTEIN,URINE NEGATIVE (NEG-TRACE); UROBILINOGEN,URINE 0.2 mg/dL (0.2 mg/dL)
[2020-07-12 21:39] LABS: BASO # 0.1 x10^3/uL (0.0-0.2); BASO % 1 % (0-3); EOS # 0.1 x10^3/uL (0.0-0.7); EOS % 2 % (0-3); HEMATOCRIT 33.3 % (36.0-47.0); HEMOGLOBIN 11.2 g/dL (12.0-15.5); LYMPH # 2.4 x10^3/uL (1.0-4.8); LYMPH % 32 % (24-48); MEAN CORPUSCULAR HEMOGLOBIN 27 pg (25-35); MEAN CORPUSCULAR HGB CONC 34 g/dL (31-37); MEAN CORPUSCULAR VOLUME 80 fL (79-100); MONO # 0.6 x10^3/uL (0.0-1.1); MONO % 8 % (0-9); NEUT # 4.5 x10^3/uL (1.8-7.7); NEUT % 58 % (31-73); PLATELET COUNT 294 x10^3/uL (140-400); RED BLOOD COUNT 4.15 x10^6/uL (3.50-5.40); RED CELL DISTRIBUTION WIDTH 14.5 % (11.5-14.5); WHITE BLOOD COUNT 7.7 x10^3/uL (4.0-11.0)
[2020-07-12 21:45] LABS: AMORPHOUS SEDIMENT,UR PRESENT /HPF; BACTERIA,URINE FEW /HPF (0-FEW); RBC,URINE 0 /HPF (0-2)
[2020-07-12] MEDS ORDERED: fentaNYL PF VIAL 100 MCG/2 ML VIAL IVP ONE (21:45)
[2020-07-12 21:50] LABS: CALCIUM 8.6 mg/dL (8.5-10.1); CREATININE 0.7 mg/dL (0.6-1.0); GFR 102.8; POTASSIUM 3.7 mmol/L (3.5-5.1)
--- NOTE | 2020-07-12 21:51 | RAD ---
EXAMINATION: XR CHEST 1V CLINICAL HISTORY: Upper abdominal pain EXAM DATE/TIME: 07/12/2020 9:40 PM COMPARISON: 07/31/2016 FINDINGS: Lines, Tubes, and Devices: None. Cardiomediastinal Silhouette: Within normal limits. Lungs and Pleura: No evidence of focal airspace consolidation or pleural effusion. Pulmonary vasculat ure unremarkable. Bones and Soft Tissues: No acute osseous abnormality. IMPRESSION: No evidence of acute cardiopulmonary abnormality or significant interval change. Electronically signed by: Frederick Remy DO (07/12/2020 9:49 PM) [facility]
[2020-07-12 21:56] LABS: ALBUMIN 4.1 g/dL (3.4-5.0); ALBUMIN/GLOBULIN RATIO 1.1 (1.0-1.7); TOTAL BILIRUBIN 0.3 mg/dL (0.2-1.0)
--- NOTE | 2020-07-12 22:00 | PHYS DOC ---
Past Medical History Past Medical History: Anxiety, Bipolar, Depression Additional Past Medical Histor: STREP THROAT, covid + (NOELLE THACKER CLAM BED WORKER) Past Surgical History: No Surgical History (NOELLE THACKER CLAM BED WORKER) Smoking Status: Never Smoker Alcohol Use: None Drug Use: None (NOELLE THACKER APRN) General Adult EDM: Chief Complaint: ABDOMINAL PAIN HPI: HPI: Patient is a 25 year old female who presents with left upper abdominal pain for last 4 days. She states it has gotten worse and more continuous. She states that sharp hurts when she breathes, and with movement. Patient denies taking any kind of control or smoking. She denies chest pain, shortness of breath, nausea, vomiting, diarrhea, fever, constipation, cough. She has a history of lactose intolerance, Covid, bipolar, anxiety, depression. Currently rating her sharp nonradiating pain 6 out of 10. (NOELLE THACKER CLAM BED WORKER) Review of Systems: Review of Systems: Constitutional: Denies fever or chills. [] Eyes: Denies change in visual acuity. [] HENT: Denies nasal congestion or sore throat. [] Respiratory: Denies cough or shortness of breath. [] Cardiovascular: Denies chest pain or edema. [] GI: + abdominal pain, denies nausea, vomiting, bloody stools or diarrhea. [] : Denies dysuria. [] Musculoskeletal: Denies back pain or joint pain. [] Integument: Denies rash. [] Neurologic: Denies headache, focal weakness or sensory changes. [] Endocrine: Denies polyuria or polydipsia. [] Lymphatic: Denies swollen glands. [] Psychiatric: Denies depression or anxiety. [] (NOELLE THACKER CLAM BED WORKER) Heart Score: C/O Chest Pain: No Risk Factors: Risk Factors: DM, Current or recent (<one month) smoker, HTN, HLP, family history of CAD, obesity. Risk Scores: Score 0 - 3: 2.5% MACE over next 6 weeks - Discharge Home Score 4 - 6: 20.3% MACE over next 6 weeks - Admit for Clinical Observation Score 7 - 10: 72.7% MACE over next 6 weeks - Early Invasive Strategies (NOELLE THACKER CLAM BED WORKER) Current Medications: Current Medications Medications (Trade) Dose Ordered Sig/Pino Start Time Stop Time Status Last Admin Dose Admin Fentanyl Citrate (Fentanyl 2ml Vial) 25 mcg 1X ONCE 07/12/20 21:45 07/12/20 21:46 DC 07/12/20 21:44 25 MCG Sodium Chloride 1,000 ml @ 1,000 mls/hr Q1H 07/12/20 21:30 07/12/20 22:29 07/12/20 21:44 1,000 MLS/HR (NOELLE THACKER APRN) Allergies: Allergies: Allergies Coded Allergies Type Severity Reaction Last Updated Verified cinnamon Allergy Severe 03/23/20 Yes milk Allergy Severe enlarged liver and spleen dx by sono after milk 01/05/18 Yes mushroom Allergy Severe Anaphylaxis, edema 01/05/18 Yes (NOELLE THACKER APRN) Physical Exam: PE: Constitutional: Well developed, well nourished, no acute distress, non-toxic appearance. [] HENT: Normocephalic, atraumatic, bilateral external ears normal, oropharynx moist, no oral exudates, nose normal. [] Eyes: PERRLA, EOMI, conjunctiva normal, no discharge. [] Neck: Normal range of motion, no tenderness, supple, no stridor. [] Cardiovascular:Heart rate regular rhythm, no murmur [] Lungs & Thorax: Bilateral breath sounds clear to auscultation [] Abdomen: Bowel sounds normal, soft, left upper quadrant and epigastric tenderness, no masses, no pulsatile masses. [] Skin: Warm, dry, no erythema, no rash. [] Back: No tenderness, no CVA tenderness. [] Extremities: No tenderness, no cyanosis, no clubbing, ROM intact, no edema. [] Neurologic: Alert and oriented X 3, normal motor function, normal sensory function, no focal deficits noted. [] Psychologic: Affect normal, judgement normal, mood normal. [] (NOELLE THACKER APRN) Current Patient Data: Labs: Laboratory Tests Test 07/12/20 21:25 07/12/20 21:30 07/12/20 21:32 Urine Collection Type Unknown Urine Color Yellow Urine Clarity Clear Urine pH 6.0 (<5.0-8.0) Urine Specific [place] >=1.030 (1.000-1.030) Urine Protein Negative mg/dL (NEG-TRACE) Urine Glucose (UA) Negative mg/dL (NEG) Urine Ketones (Stick) Negative mg/dL (NEG) Urine Blood Negative (NEG) Urine Nitrite Negative (NEG) Urine Bilirubin Negative (NEG) Urine Urobilinogen Dipstick 0.2 mg/dL (0.2 mg/dL) Urine Leukocyte Esterase Negative (NEG) Urine RBC 0 /HPF (0-2) Urine WBC 1-4 /HPF (0-4) Urine Squamous Epithelial Cells Mod /LPF Urine Amorphous Sediment Present /HPF Urine Bacteria Few /HPF (0-FEW) Urine Mucus Mod /LPF White Blood Count 7.7 x10^3/uL (4.0-11.0) Red Blood Count 4.15 x10^6/uL (3.50-5.40) Hemoglobin 11.2 g/dL (12.0-15.5) L Hematocrit 33.3 % (36.0-47.0) L Mean Corpuscular Volume 80 fL (79-100) Mean Corpuscular Hemoglobin 27 pg (25-35) Mean Corpuscular Hemoglobin Concent 34 g/dL (31-37) Red Cell Distribution Width 14.5 % (11.5-14.5) Platelet Count 294 x10^3/uL (140-400) Neutrophils (%) (Auto) 58 % (31-73) Lymphocytes (%) (Auto) 32 % (24-48) Monocytes (%) (Auto) 8 % (0-9) Eosinophils (%) (Auto) 2 % (0-3) Basophils (%) (Auto) 1 % (0-3) Neutrophils # (Auto) 4.5 x10^3/uL (1.8-7.7) Lymphocytes # (Auto) 2.4 x10^3/uL (1.0-4.8) Monocytes # (Auto) 0.6 x10^3/uL (0.0-1.1) Eosinophils # (Auto) 0.1 x10^3/uL (0.0-0.7) Basophils # (Auto) 0.1 x10^3/uL (0.0-0.2) D-Dimer (Lizz) 0.33 ug/mlFEU (0.00-0.50) Sodium Level 140 mmol/L (136-145) Potassium Level 3.7 mmol/L (3.5-5.1) Chloride Level 105 mmol/L (98-107) Carbon Dioxide Level 27 mmol/L (21-32) Anion Gap 8 (6-14) Blood Urea Nitrogen 15 mg/dL (7-20) Creatinine 0.7 mg/dL (0.6-1.0) Estimated GFR (Cockcroft-Gault) 102.8 BUN/Creatinine Ratio 21 (6-20) H Glucose Level 81 mg/dL (70-99) Calcium Level 8.6 mg/dL (8.5-10.1) Total Bilirubin Pending Aspartate Amino Transferase (AST) Pending Alanine Aminotransferase (ALT) Pending Alkaline Phosphatase Pending Total Protein Pending Albumin Pending Albumin/Globulin Ratio Pending POC Urine HCG, Qualitative Hcg negative (Negative) Laboratory Tests 07/12/20 21:30 Laboratory Tests 07/12/20 21:30 Vital Signs: Vital Signs Date Time Temp Pulse Resp B/P (MAP) Pulse Ox O2 Delivery O2 Flow Rate FiO2 07/12/20 21:44 18 99 Room Air (NOELLE THACKER APRN) EKG: EKG: [] (NOELLE THACKER APRN) Radiology/Procedures: Radiology/Procedures: [] Impression: [facility] [address] [place], [place] [id number] IMAGING REPORT Signed PATIENT: AMA NINA ACCOUNT: [id number] : 1995 LOCATION: ER AGE: 25 SEX: F EXAM STATUS: REG ER ORD. PHYSICIAN: NOELLE THACKER APRN REASON: UPPER ABD PAIN PROCEDURE: PORTABLE CHEST 1V EXAMINATION: XR CHEST 1V CLINICAL HISTORY: Upper abdominal pain EXAM DATE/TIME: 07/12/2020 9:40 PM COMPARISON: 07/31/2016 FINDINGS: Lines, Tubes, and Devices: None. Cardiomediastinal Silhouette: Within normal limits. Lungs and Pleura: No evidence of focal airspace consolidation or pleural effusion. Pulmonary vasculature unremarkable. Bones and Soft Tissues: No acute osseous abnormality. IMPRESSION: No evidence of acute cardiopulmonary abnormality or significant interval change. Electronically signed by: Frederick Dukes DO (07/12/2020 9:49 PM) [facility] DICTATED and SIGNED BY: FREDERICK DUKES DO DATE: 07/12/[id number] 0 [facility] [address] [place] [address] IMAGING REPORT Signed PATIENT: AMA NINA ACCOUNT: [id number] : 1995 LOCATION: ER AGE: 25 SEX: F EXAM STATUS: REG ER ORD. PHYSICIAN: NOELLE THAKCER APRN REASON: LUQ tenderness X 4 DAYS PROCEDURE: CT ABD PELV W/ IV CONTRST ONLY EXAMINATION: CT ABDOMEN+PELVIS W (CT ABDOMEN/PELVIS WITH IV CONTRAST) CLINICAL HISTORY: LUQ tenderness X 4 DAYS TECHNIQUE: CT of the abdomen and pelvis was performed using standard technique, scanning from just above the dome of the diaphragm to the symphysis pubis following administration of intravenous contrast. CT Dose Reduction Employed: One or more of the following individualized dose reduction techniques were utilized for this examination: 1. Automated exposure control 2. Adjustment of the mA and/or kV according to patient size 3. Use of iterative reconstruction technique. COMPARISON: 03/23/2020 FINDINGS: Minimal bibasilar subsegmental atelectasis. Small calcification in the spleen, possibly related to old granulomatous disease. Minimally distended gallbladder, liver, pancreas, adrenal glands, and kidneys unremarkable. Minimally distended urinary bladder suboptimally evaluated. Uterus unremarkable. Dominant right ovarian follicle. Stomach moderately distended with gas and particulate matter. No bowel dilation or definite wall thickening. Nondilated appendix with tiny appendicolith. No abdominal aortic or iliac artery aneurysm. Multiple prominent borderline enlarged mesenteric lymph nodes in the left hemiabdomen measuring up to 1 cm in short axis, nonspecific. No evidence of acute osseous abnormality. IMPRESSION: Multiple prominent borderline enlargement mesenteric lymph nodes in the left hemiabdomen, nonspecific and similar to prior study. There is otherwise no evidence of significant abdominopelvic abnormality. Electronically signed by: Frederick Dukes DO (07/12/2020 10:53 PM) [facility] DICTATED and SIGNED BY: FREDERICK DUKES DO DATE: 07/12/[id number] 0 (NOELLE THACKER APRN) Course & Med Decision Making: Course & Med Decision Making Pertinent Labs and Imaging studies reviewed. (See chart for details) See HPI. Alert and oriented x4. Ambulatory with a steady gait. Speaks in full clear sentences. Skin pink warm and dry. Abdomen is soft but tender to the left upper quadrant and epigastric area. Vital signs within normal limits. She is afebrile. No CVA tenderness. Blood work is unremarkable. Urinalysis shows contamination. Chest x-ray shows no acute findings. [] (NOELLE THACKER APRN) Course & Med Decision Making I oversaw on the above date of service of this patient. I agree with the findings, plan of care, and disposition as documented. Electronically signed, Linda Parker DO (LINDA PARKER DO) Trish Disclaimer: Trish Disclaimer: This electronic medical record was generated, in whole or in part, using a voice recognition dictation system. (NOELLE THACKER APRN) Departure Departure Impression: Primary Impression: Nonspecific abdominal pain Disposition: HOME / SELF CARE / HOMELESS Condition: STABLE Referrals: VITALY SANDHU MD (PCP) PAT MALHOTRA MD Patient Instructions: Abdominal Pain (Nonspecific) Additional Instructions: Follow-up with your primary care provider if needed. I have also referred you to a GI doctor. Drink plenty of fluids. NOELLE THACKER APRN July 12, 2020 22:00 LINDA PARKER DO July 15, 2020 09:57
[2020-07-12] MEDS ORDERED: CONTRAST GIVEN. MC PRN (22:15)
[2020-07-12] MEDS ORDERED: IOHEXOL 300 MG/ML 100ML VIAL. IV ONE (22:15)
--- NOTE | 2020-07-12 22:56 | RAD ---
EXAMINATION: CT ABDOMEN+PELVIS W (CT ABDOMEN/PELVIS WITH IV CONTRAST) CLINICAL HISTORY: LUQ tenderness X 4 DAYS TECHNIQUE: CT of the abdomen and pelvis was performed using standard technique, scanning from just ab ove the dome of the diaphragm to the symphysis pubis following administration of intravenous contrast . CT Dose Reduction Employed: One or more of the following individualized dose reduction techniques wer e utilized for this examination: 1. Automated exposure control 2. Adjustment of the mA and/or kV ac cording to patient size 3. Use of iterative reconstruction technique. COMPARISON: 03/23/2020 FINDINGS: Minimal bibasilar subsegmental atelectasis. Small calcification in the spleen, possibly related to old granulomatous disease. Minimally distended gallbladder, liver, pancreas, adrenal glands, and kidneys unremarkable. Minimally distended urinary bladder suboptimally evaluated. Uterus unremarkable. Dominant right ovari an follicle. Stomach moderately distended with gas and particulate matter. No bowel dilation or definite wall thic kening. Nondilated appendix with tiny appendicolith. No abdominal aortic or iliac artery aneurysm. Multiple prominent borderline enlarged mesenteric lymph nodes in the left hemiabdomen measuring up to 1 cm in short axis, nonspecific. No evidence of acute osseous abnormality. IMPRESSION: Multiple prominent borderline enlargement mesenteric lymph nodes in the left hemiabdomen, nonspecific and similar to prior study. There is otherwise no evidence of significant abdominopelvic abnormality. Electronically signed by: Frederick Remy DO (07/12/2020 10:53 PM) [facility]
[2020-07-12] MEDS ORDERED: ORPHENADRINE CITRATE 60 MG/2 ML VIAL. IM ONE (23:15)
[2020-07-12] MEDS ORDERED: KETOROLAC 30 MG/ML VIAL. IVP ONE (23:15)
[2020-07-12 23:32] VITALS: BP 111/56
== END 2020-07-12 23:06 | disposition home or self-care (01) ==
LOC: ER 20:58
DX: R10.12 Left upper quadrant pain (principal); F31.9 Bipolar disorder, unspecified; Z91.011 Allergy to milk products; Z91.018 Allergy to other foods
CPT/HCPCS: 36415; 71045; 74177; 80053; 81001; 81025; 83690; 85025; 85379; 96361; 96372; 96374; 96375; 99285; J1885; J2360; J3010; J7030; Q9967

== ENCOUNTER → 2021-02-09 | Outpatient (CLI) | payer OTHER ==
[~2021-02-09] MED LIST changes: +CYCL10TA19 PO; -CYCL10TA2 PO
== END ==
LOC: SPEC 14:28
PROVIDERS: ATTEND Family Medicine
DX: Z34.81 Encounter for supervision of other normal pregnancy, first trimester (principal)
CPT/HCPCS: 87623; 88175

== ENCOUNTER → 2021-02-10 | Outpatient (CLI) | payer OTHER ==
--- NOTE | 2021-02-10 17:28 | RAD ---
US OB <14 WKS +TV History: Reason: / Spl. Instructions: unsure dates / History: Comparison: None. Technique: Grayscale and color Doppler imaging of the pelvis was performed using transabdominal techn ique. Findings: The uterus measures 9 x 7 x 7 cm. Single intrauterine gestational sac with regular appearance. Yolk sac is identified. pole is id entified with crown-rump length 0.32 cm. Estimated gestational age by ultrasound 6 weeks 0 days. Feta l heart rate 114 beats per minutes. Subchorionic hematoma measures 2.2 x 1.6 cm. Right ovary measures 3.5 x 2.1 x 2.6 cm. Left ovary measures 3.9 x 3.0 x 2.8 cm. Complicated left ovarian follicle measures 2.5 cm. Normal Doppler flow to the ovaries bilaterally. IMPRESSION: 1. Single intrauterine with gestational age 6 weeks 0 days and heart rate 114 bpm. R ecommend routine anatomic screening at 18-22 weeks. 2. Complicated left ovarian follicle. Electronically signed by: John Fortune DO (02/10/2021 5:26 PM) [id number]
== END ==
LOC: US 13:25
PROVIDERS: ATTEND Family Medicine
DX: O34.80 Maternal care for other abnormalities of pelvic organs, unspecified trimester (principal); N83.02 Follicular cyst of left ovary; Z3A.01 Less than 8 weeks gestation of pregnancy
CPT/HCPCS: 76801; 76817

== ENCOUNTER 2021-04-20 16:23 | Emergency (ER) | payer OTHER ==
[~2021-04-20] VITALS: Ht 162.6 cm; Wt 86.9 kg
[2021-04-20 16:37] VITALS: BP 152/69
[2021-04-20] MEDS ORDERED: IV NORMAL SALINE 1000ML BAG 1,000 ML IV SCH (16:45)
--- NOTE | 2021-04-20 16:53 | PHYS DOC ---
Past Medical History Past Medical History: Anxiety, Bipolar, Depression Additional Past Medical Histor: STREP THROAT, covid + (NIKITA MONTEZ APRN) Past Surgical History: No Surgical History (NIKITA MONTEZ APRN) Smoking Status: Never Smoker Alcohol Use: None Drug Use: None (NIKITA MONTEZ APRN) General Adult EDM: Chief Complaint: ABDOMINAL PAIN HPI: HPI: Patient is a 25-year-old female who presents to the emergency department today for lower abdominal cramping that started this morning. She rates her pain 8 out of 10. She reports that she woke up with the abdominal pain and thought she just needed to eat something so she did eat and then vomited after. Patient reports that she has had nausea and vomiting throughout today. She denies any sick exposures, urinary symptoms, blood in her stools or vomit, fevers, vaginal bleeding, vaginal discharge today vaginal odor.. Patient is approximately 16 weeks . Last menstrual period was December 27. Her UPPER DOUBLER is Dr. Mary. She is G4, P3. (NIKITA MONTEZ APRN) Review of Systems: Review of Systems: Constitutional: negative unless reported in HPI Eyes: negative unless reported in HPI HENT: negative unless reported in HPI Respiratory: negative unless reported in HPI Cardiovascular: negative unless reported in HPI GI: negative unless reported in HPI : negative unless reported in HPI Musculoskeletal: negative unless reported in HPI Integument: negative unless reported in HPI Neurologic: negative unless reported in HPI Endocrine: negative unless reported in HPI Lymphatic: negative unless reported in HPI Psychiatric: negative unless reported in HPI (NIKITA MONTEZ APRN) Heart Score: C/O Chest Pain: N/A Risk Factors: Risk Factors: DM, Current or recent (<one month) smoker, HTN, HLP, family history of CAD, obesity. Risk Scores: Score 0 - 3: 2.5% MACE over next 6 weeks - Discharge Home Score 4 - 6: 20.3% MACE over next 6 weeks - Admit for Clinical Observation Score 7 - 10: 72.7% MACE over next 6 weeks - Early Invasive Strategies (NIKITA MONTEZ APRN) Allergies: Allergies: Allergies Coded Allergies Type Severity Reaction Last Updated Verified cinnamon Allergy Severe 03/23/20 Yes milk Allergy Severe enlarged liver and spleen dx by sono after milk 01/05/18 Yes mushroom Allergy Severe Anaphylaxis, edema 01/05/18 Yes (NIKITA MONTEZ APRN) Physical Exam: PE: Constitutional: Well developed, well nourished, no acute distress, non-toxic appearance. [] HENT: Normocephalic, atraumatic, bilateral external ears normal, oropharynx moist, no oral exudates, nose normal. [] Eyes: PERRL, EOMI, conjunctiva normal, no discharge. [] Neck: Normal range of motion, no stridor Cardiovascular:Heart rate tachycardia rhythm, no murmur [] Lungs & Thorax: Bilateral breath sounds clear to auscultation [] Abdomen: Bowel sounds normal, soft, lateral lower abdominal pain with palpation, worse on the left side, no abdominal guarding, no masses, no pulsatile masses. [] Skin: Warm, dry, no erythema, no rash. [] Back: Normal range of motion Extremities: No tenderness, no cyanosis, no clubbing, ROM intact, no edema. [] Neurologic: Alert and oriented X 3, normal motor function, normal sensory function, no focal deficits noted. [] Psychologic: Affect normal, judgement normal, mood normal. [] (NIKITA MONTEZ APRN) Current Patient Data: Labs: Laboratory Tests Test 04/20/21 16:37 POC Urine HCG, Qualitative Hcg positive (Negative) Vital Signs: Vital Signs Date Time Temp Pulse Resp B/P (MAP) Pulse Ox O2 Delivery O2 Flow Rate FiO2 04/20/21 16:37 98.2 131 22 152/69 (96) 100 Room Air 98.2 (NIKITA MONTEZ APRN) EKG: EKG: [] (NIKITA MONTEZ APRN) Radiology/Procedures: Radiology/Procedures: [] (NIKITA MONTEZ APRN) Course & Med Decision Making: Course & Med Decision Making Pertinent Labs and Imaging studies reviewed. (See chart for details) [] Patient presents to the emergency department for bilateral lower abdominal cramping in . Patient is also reporting nausea and vomiting. Patient is approximately 16 weeks . Her UPPER DOUBLER is Dr. Powers. Patient reports no complications with this and no complications with previous pregnancies. Patient denies any vaginal bleeding. Work-up in the ER consisted of blood work, urinalysis and ultrasound of abdomen. Patient treated with IV fluids and nausea medication and Tylenol for her pain. Patient's heart rate has improved following treatment with IV fluids and her heart rate is 111. Patient had mild leukocytosis with a white blood cell count of 12.3 which could be due to her nausea and vomiting. Her magnesium was 1.6 and this was replaced in the emergency department. Patient did not have elevated lipase. [place] [address]. Patient's urinalysis shows white blood cells, few bacteria with few squamous cells, no leukocytes or nitrates. Patient be treated with an antibiotic for a urinary tract infection. Ultrasound shows a heart rate of 169 and gestational age 16 weeks and 1 day, no acute findings noted. Patient reports that her nausea has resolved. Patient will be discharged home with nausea medication. She is advised to increase her fluids. Patient advised to follow-up with her UPPER DOUBLER. I discussed with patient all findings and diagnostic testing as well as the need to follow-up with PCP for further evaluation and treatment or return to the ER if any new or worsening symptoms. Strict return precautions were also discussed at length. Patient voiced understanding and agreement with the plan. Patient is hemodynamically stable at the time of disposition. (NIKITA MONTEZ APRN) Course & Med Decision Making I was available for consultation regarding this patient's care, medical decision-making, discussion of laboratory exams. I was not formally consulted, nor was I made aware of the patient's presence in the ER. The patient was discharged and this chart was sent to me after the patient was already gone. It appears as if the plan of care is to treat the patient for a "UTI" with antibiotics. I reviewed the patient's urinalysis, this not appear to be concurrent with a UTI. Mild leukocytosis noted, which is physiologic in , as well as with hyperemesis condition such as the patient presented for. Live IUP is noted on ultrasound. I would been happy to engage in discussion regarding this patient's care, but this was not done. (MENDOZA PRICE DO) Trish Disclaimer: Trish Disclaimer: This electronic medical record was generated, in whole or in part, using a voice recognition dictation system. (NIKITA MONTEZ APRN) Departure Departure Impression: Primary Impression: Abdominal pain in Qualified Codes: O26.892 - Other specified related conditions, second trimester; R10.9 - Unspecified abdominal pain Disposition: HOME / SELF CARE / HOMELESS Condition: GOOD Referrals: VITALY MARY MD (PCP) Patient Instructions: ABCs of , Abdominal Pain During , [id number] Additional Instructions: You were seen in the emergency department today for abdominal pain and your . Your urinalysis does show a urinary tract infection which be treated with an antibiotic. Please start and finish the antibiotic completely. Your ultrasound did not show any acute findings. You will be discharged home with nausea medication you can take as needed. Please increase your fluids, avoid eating any spicy, greasy or fatty foods. Please follow-up with your UPPER DOUBLER tomorrow regarding your ER visit. Your beta hCG level was 38447, please follow- up with your UPPER DOUBLER in 2 days to have this level rechecked. You should have a ultrasound at 18 to 20 weeks as suggested. Return to the emergency department if you develop worsening of your abdominal pain, vaginal bleeding, intractable nausea or vomiting, high fevers refractory to treatment, blood in your stools or vomit, severe back pain, weakness, syncope or any new or worsening concerns. Scripts Ondansetron (ONDANSETRON ODT) 4 Mg Tab.rapdis 1 TAB PO PRN Q6-8HRS for 5 Days, #20 TAB 0 Refills Prov: NIKITA MONTEZ APRN 04/20/21 Cephalexin (KEFLEX) 500 Mg Capsule 1 CAP PO TID for 7 Days, #21 CAP 0 Refills Prov: NIKITA MONTEZ APRN 04/20/21 NIKITA MONTEZ APRN Apr 20, 2021 16:53 MENDOZA PRICE DO Apr 21, 2021 02:29
[2021-04-20 16:54] LABS: BASO % 0 % (0-3); EOS % 0 % (0-3); HEMATOCRIT 34.8 % (36.0-47.0); HEMOGLOBIN 11.2 g/dL (12.0-15.5); LYMPH # 0.8 x10^3/uL (1.0-4.8); LYMPH % 6 % (24-48); MEAN CORPUSCULAR HEMOGLOBIN 26 pg (25-35); MEAN CORPUSCULAR HGB CONC 32 g/dL (31-37); MEAN CORPUSCULAR VOLUME 82 fL (79-100); MONO # 0.4 x10^3/uL (0.0-1.1); MONO % 3 % (0-9); NEUT # 11.1 x10^3/uL (1.8-7.7); NEUT % 90 % (31-73); PLATELET COUNT 258 x10^3/uL (140-400); RED BLOOD COUNT 4.26 x10^6/uL (3.50-5.40); RED CELL DISTRIBUTION WIDTH 14.3 % (11.5-14.5); WHITE BLOOD COUNT 12.3 x10^3/uL (4.0-11.0)
[2021-04-20 16:58] LABS: BILIRUBIN,URINE NEGATIVE (NEG); CLARITY,URINE CLEAR; COLOR,URINE YELLOW; NITRITE,URINE NEGATIVE (NEG); PH,URINE 5.5 (<5.0-8.0); PROTEIN,URINE NEGATIVE (NEG-TRACE); UROBILINOGEN,URINE 0.2 mg/dL (0.2 mg/dL)
[2021-04-20 17:07] LABS: CALCIUM 8.1 mg/dL (8.5-10.1); CREATININE 0.5 mg/dL (0.6-1.0)
[2021-04-20 17:08] LABS: GFR 151.6; POTASSIUM 3.5 mmol/L (3.5-5.1)
[2021-04-20 17:09] LABS: BACTERIA,URINE FEW /HPF (0-FEW)
[2021-04-20 17:10] LABS: RBC,URINE 0 /HPF (0-2)
[2021-04-20 17:14] LABS: ALBUMIN 3.2 g/dL (3.4-5.0); ALBUMIN/GLOBULIN RATIO 0.6 (1.0-1.7); MAGNESIUM 1.6 mg/dL (1.8-2.4); TOTAL BILIRUBIN 0.3 mg/dL (0.2-1.0); TOTAL PROTEIN 8.2 g/dL (6.4-8.2)
[2021-04-20] MEDS ORDERED: ONDANSETRON PF 4 MG/2 ML VIAL. IVP ONE (17:15)
[2021-04-20] MEDS ORDERED: MAGNESIUM OXIDE 400 MG TABLET PO SCH (18:00)
--- NOTE | 2021-04-20 18:34 | RAD ---
EXAM: US OB Limited CLINICAL HISTORY: Reason: abdominal pain in COMPARISON: 02/10/2021 TECHNIQUE: Limited transabdominal ultrasound of the uterus was performed. FINDINGS: NUMBER: Single POSITION: transverse PLACENTA: Location: Anterior wall Placentation: Normal. Cord insertion: Normal. Cord type: 3 vessel cord. ANATOMY: HEART RATE: 169 bpm COMMENTS: None Current measurements are: BPD - 3.38 cm = 16 weeks 3 days HC -12.58 cm = 16 weeks 2 days AC - 9.83 cm = 15 weeks 6 days FL - 1.97 cm = 15 weeks 6 days Estimated weight 140 g MATERNAL ANATOMY Cervix: Not well visualized UTERUS: No abnormalities seen. Placenta appears normal without appreciable hemorrhage. OVARIES/ADNEXAE: No masses seen. CUL-DE-SAC: No fluid. HISTORICAL DATES Last menstrual period: 12/30/2020 CALCULATED DATES EGA (LMP): 15 weeks 6 days CORINNE (LMP): 10/06/2021 EGA (US): 16 weeks 1 day CORINNE (US): 10/04/2021 IMPRESSION: 1. LMP when compared to the prior study on February 10, 2021 has changed. Recommend clarification. T his report assumes the recently provided LMP of 12/30/2020 is correct. 2. Single live intrauterine gestation of 15 weeks 6 days by LMP with concordant ultrasound. 3. Dedicated survey recommended at 18-20 weeks gestation in the nonemergent setting. Electronically signed by: Freya Pace MD (04/20/2021 6:31 PM) [email or web address]
[2021-04-20] MEDS ORDERED: CEPH500C PO (18:47)
[2021-04-20] MEDS ORDERED: ONDA4TAB12 PO (18:47)
[2021-04-20] MEDS ORDERED: CEPHALEXIN 250 MG CAPSULE. PO ONE (19:15)
[2021-04-20] MEDS ORDERED: ACETAMINOPHEN 325 MG TABLET. PO ONE (19:15)
== END 2021-04-20 18:59 | disposition home or self-care (01) ==
LOC: ER 16:23
DX: O26.892 Other specified pregnancy related conditions, second trimester (principal); R10.30 Lower abdominal pain, unspecified; R11.2 Nausea with vomiting, unspecified; O99.342 Other mental disorders complicating pregnancy, second trimester; F31.9 Bipolar disorder, unspecified; Z3A.16 16 weeks gestation of pregnancy; Z91.011 Allergy to milk products; Z91.018 Allergy to other foods
CPT/HCPCS: 36415; 76815; 80053; 81001; 81025; 83690; 83735; 84702; 85025; 96361; 96374; 99284; J2405; J7030

== ENCOUNTER 2021-06-19 17:35 | Observation (INO) | payer OTHER ==
[2021-06-19] MEDS ORDERED: IV RINGERS,LACTATED 1000ML 1,000 ML IV SCH (17:45)
[2021-06-19] MEDS ORDERED: hydrOXYzine 25 MG TABLET PO PRN (18:15)
[2021-06-19 18:23] LABS: BACTERIA,URINE MODERATE /HPF (0-FEW); RBC,URINE 0 /HPF (0-2); WBC,URINE OCC /HPF (0-4)
== END 2021-06-19 19:45 | disposition home or self-care (01) ==
LOC: 3 SO LND 17:35
PROVIDERS: ADMIT Family Medicine; ATTEND Family Medicine
DX: O26.892 Other specified pregnancy related conditions, second trimester (principal); R10.9 Unspecified abdominal pain; Z3A.24 24 weeks gestation of pregnancy
CPT/HCPCS: 59025; 81001; 87086; G0378; G0379

== ENCOUNTER 2021-07-18 18:45 | Observation (INO) | payer OTHER ==
[2021-07-18] MEDS ORDERED: IV RINGERS,LACTATED 1000ML 1,000 ML IV PRN (19:00)
== END 2021-07-18 20:31 | disposition home or self-care (01) ==
LOC: 3 SO LND 18:45
PROVIDERS: ADMIT Family Medicine; ATTEND Family Medicine
DX: O62.9 Abnormality of forces of labor, unspecified (principal); O99.891 Other specified diseases and conditions complicating pregnancy; M54.9 Dorsalgia, unspecified; O26.893 Other specified pregnancy related conditions, third trimester; R19.7 Diarrhea, unspecified; R10.2 Pelvic and perineal pain; Z3A.28 28 weeks gestation of pregnancy
CPT/HCPCS: 59025; 81003; G0378; G0379